=== PATIENT | female | born 1990 | race Two or more races ===

== ENCOUNTER 2019-04-27 00:31 | Emergency (ER) | payer OTHER ==
[~2019-04-27] VITALS: Ht 175.3 cm; Wt 77.1 kg
[2019-04-27 00:40] VITALS: BP 173/102
--- NOTE | 2019-04-27 00:40 | NUR ---
PT [id number]/[employer] FOR OTB, PER LADP PATIENT REPEATEDLY HITTING HEAD ON WINDOW OF PATROL CAR. DENIES LOC. PATIENT STATES SHE HAS NO COMPLAINTS. PT ETOH. PT ON MONITOR IN BED 11 WITH [employer] AT BEDSIDE.
--- NOTE | 2019-04-27 01:20 | NUR ---
PT REFUSED TO SIGN WAIVER. FRANCISCO JAVIER VILLAVICENCIO AWARE.
--- NOTE | 2019-04-27 01:32 | NUR ---
PT CHANGED THEIR MIND. PT SIGNED WAIVER. PT TAKEN TO CT VIA [facility].
--- NOTE | 2019-04-27 01:47 | NUR ---
PT RETURNED FROM CT. PT TOLERATED WELL.
--- NOTE | 2019-04-27 02:02 | NUR ---
Patient discharged to home in stable condition. Written and verbal after care instructions given. Patient verbalizes understanding of instruction. PT AMBULATORY WITH STEADY GAIT ACCOMPANIED BY [employer].
== END 2019-04-27 02:37 ==
LOC: ER 00:33
DX: S09.8XXA Other specified injuries of head, initial encounter (principal); F10.129 Alcohol abuse with intoxication, unspecified; F17.200 Nicotine dependence, unspecified, uncomplicated; Z60.2 Problems related to living alone; W22.8XXA Striking against or struck by other objects, initial encounter; Y93.89 Activity, other specified; Y92.89 Other specified places as the place of occurrence of the external cause; Y99.8 Other external cause status; Y90.9 Presence of alcohol in blood, level not specified
CPT/HCPCS: 70450-TC